=== PATIENT | male | born 1985 | race African-American/Black ===

== ENCOUNTER 2023-12-17 12:13 | Emergency (ER) | payer BC, SELFPAY ==
--- NOTE | ~2023-12-17 | XR_ITS ---
EXAMINATION: XR CHEST CLINICAL INFORMATION: Chest pain COMPARISON: None available. TECHNIQUE: Frontal view of the chest was obtained. FINDINGS: No significant abnormality is noted involving the heart, lungs, mediastinum, bony thorax or soft tissues. XR/XR chest 1V IMPRESSION: No acute pulmonary process.
--- NOTE | ~2023-12-17 | CT_ITS ---
EXAMINATION: CT ABDOMEN AND PELVIS WITH CONTRAST CLINICAL INFORMATION: high fever, diarrhea prior gastric sleeve COMPARISON: None available. TECHNIQUE: Multidetector volumetric images were obtained from the superior aspect of the liver through the pubic symphysis following administration 85 mL of Omnipaque 350 intravenous contrast. Sagittal and coronal reformatted images were obtained on the technologist's workstation. Oral contrast: No This CT examination was performed using dose optimization techniques as appropriate, variously including the following: *Automated exposure control *Adjustment of mA and/or kV according to patient size (this includes techniques or standardized protocols for targeted exams where dose is matched to indication/reason for exam; i.e. extremities or head) *Use of iterative reconstruction technique DLP: 700 mGy-cm FINDINGS: LUNG BASES: The visualized lung bases are unremarkable. LIVER, GALLBLADDER, AND BILIARY TREE: The liver is normal in size, shape, and attenuation. No focal hepatic lesion or biliary ductal dilatation is present. The gallbladder is unremarkable with no evidence of radiopaque gallstones, gallbladder wall thickening, or obvious pericholecystic inflammatory changes. PANCREAS: Unremarkable. SPLEEN: Unremarkable. ADRENAL GLANDS: Unremarkable. KIDNEYS AND URETERS: The kidneys are normal in size, shape, and attenuation. No hydronephrosis, hydroureter, or calculi seen. No perinephric stranding. BLADDER: Unremarkable. GASTROINTESTINAL TRACT: Status post gastric sleeve bariatric procedure. There is a small hiatal hernia with a small amount of fluid in the imaged portion of the distal esophagus. Moderate volume of liquid stool is present throughout the colon. Small bowel and colon are normal in caliber without appreciable bowel wall thickening. Appendix is normal ABDOMINAL WALL: Moderate-sized fat-containing umbilical hernia. No bowel involvement. Tiny fat-containing supraumbilical hernias are also noted. LYMPH NODES: Multiple prominent mesenteric lymph nodes, within normal limits in size measuring up to 5 mm in cross-section. VASCULAR: Unremarkable. PELVIC VISCERA: The prostate and seminal vesicles are unremarkable. OSSEOUS STRUCTURES: Mild osteoarthritis in the hips and SI joints. No acute osseous findings. CT/CT abdomen pelvis w IV con IMPRESSION: 1. Moderate volume of liquid stool throughout the colon, consistent with a history of diarrhea. No appreciable bowel wall thickening. 2. Status post gastric sleeve bariatric procedure with a small hiatal hernia and a small amount of fluid in the distal esophagus. 3. Moderate-sized fat-containing umbilical hernia.
--- NOTE | 2023-12-17 12:20 | ECG_ITS ---
Test Reason : chest pain Blood Pressure : / mmHG Vent. Rate : 108 BPM Atrial Rate : 108 BPM P-R Int : 168 ms QRS Dur : 086 ms QT Int : 326 ms P-R-T Axes : 046 005 026 degrees QTc Int : 436 ms Sinus tachycardia Otherwise normal ECG No previous ECGs available Referred By: Generic ED Physician Electronically Signed By:CARLEEN CORBIN
[2023-12-17 12:28] VITALS: BP 110/77; PULSE 111; RESP 17; TEMP 37; O2SAT 97; BMI 31.1
--- NOTE | 2023-12-17 12:34 | ED.GENADULT ---
HPI - General Adult General Chief complaint: Abdominal Pain Stated complaint: Chest pain, abd pain, vomiting Time Seen by Provider: 12/17/23 21:02 Source: patient Mode of arrival: ambulatory Limitations: no limitations History of Present Illness HPI narrative: 38 yo male with hx of HIV on meds and undetectable viral load here with c/o eating at a friends house then 30 min later developed abrupt onset n/v/d and having diffuse abdominal cramps. He felt some chest pain after vomiting but all of that has improved. He has not had any bleeding. No known fevers. He was able to have BM and pass gas today. He had gastric sleeve a few years back but has had no issues with it. MD complaint: n/v/d Onset (ago): day(s) (last night) Location: abdomen Radiation: non-radiation Severity: moderate Quality: dull Pain Consistency: intermittent Relieving factors: none Exacerbating factors: eating Associated symptoms: loss of appetite, malaise and nausea/vomiting Treatments prior to arrival: none Related Data Previous Rx's Medication Instructions Recorded ondansetron 4 mg disintegrating 4 mg PO Q8H PRN nausea and 12/17/23 tablet vomiting #20 tabs Allergies Allergy/AdvReac Type Severity Reaction Status Date / Time No Known Allergies Allergy Verified 12/17/23 12:31 Review of Systems Review of Systems: Constitutional : No Weight loss, No Fever, No Chills ENT/Mouth : No sore throat, No Rhinorrhea Eyes: No Swelling, No Redness Cardiovascular : No Chest Pain, No SOB, NoEdema Respiratory : No Cough, No Sputum, No Wheezing Gastrointestinal : Positive Nausea, Positive Vomiting, positive Diarrhea, positive abdominal Pain, No Hematochezia, No Melena Genitourinary : No Dysuria, No Urinary Frequency, No Hematuria, No Urgency Musculoskeletal : No joint pain, No Myalgias, No Joint Swelling Skin : No Skin Lesions, No rash Neuro : No Weakness, No Numbness, No Dizziness, No Headache Psych : No Anxiety/Panic, No Depression All other systems reviewed and are negative. [facility] Past Medical History Attestation statement: The following information was validated with the patient. Medical History (Updated 12/19/23 @ 00:02 by Bess Gilbert) HIV (human immunodeficiency virus infection) Surgical History S/P gastric sleeve procedure Social History Social History Smoked in Last 30 Days: No Use of substances other than those prescribed or required for medical reasons: No Advance Directives: No Advance Directives Information Provided: No Physical Exam ED Vital Signs: Vital Signs - 24 hr 12/17/23 12:28 12/17/23 18:11 12/17/23 20:55 Temperature 98.6 F 99.1 F 99.7 F Pulse Rate 111 H 111 H 99 Respiratory Rate 17 18 18 Blood Pressure 110/77 118/74 109/56 L Pulse Oximetry 97 97 99 Oxygen Delivery Method Room Air Room Air Room Air 12/17/23 22:00 12/17/23 23:50 Temperature 103.0 F H 102.4 F H Pulse Rate 112 H Respiratory Rate 20 Blood Pressure 118/62 Pulse Oximetry 97 Oxygen Delivery Method Room Air BMI result Body Mass Index 31.1 Appearance: Alert. Oriented X3. No acute distress. Eyes: Pupils equal, round and reactive to light. ENT: Pharynx normal. Neck: Normal inspection. Neck supple. CVS: Normal heart rate and rhythm. Pulses normal. Respiratory: No respiratory distress. Breath sounds normal. Abdomen: Soft and nontender. no rebound or mass Skin: Skin warm and dry. Normal skin color. Normal skin turgor. Extremities: No lower extremity edema. No calf ttp Neuro: Oriented X 3. No motor deficit. No sensory deficit. Course Course Course Narrative: RME: 38 yold male presents to the ED for abdominal pain, nausea, vomitting, and chest pain due to vomitting since yesterday after eating food from a [employer] party. Patient denies any diarrhea or genitourinary symptoms. Labs EKG COVID swab influenza swab ordered. Reevaluation(s) Reevaluation #1: tolerating PO feels much better Reevaluation #2: fever likely from viral syndrome has no abdominal pain all GI symptoms started together abdomen is benign Reevaluation #3: given fevers will obtain CT scan of abdomen to rule out infection though viral and food toxicity high on list he is immune competent undetectable viral load Additional Reevaluation(s): no sign of infection on CT scan patient does not want to stay has a fever but states he wants to go home and rest. alert and oriented no signs of confusion tolerating PO Medications Administered Discontinued Medications Generic Name Dose Route Start Last Admin Trade Name Partha PRN Reason Stop Dose Admin Acetaminophen 650 mg 12/17/23 18:18 12/17/23 18:31 Acetaminophen 325 Mg Tablet PO 12/17/23 18:19 650 mg ONCE ONE Administration Acetaminophen 650 mg 12/17/23 23:43 12/18/23 00:05 Acetaminophen 325 Mg Tablet PO 12/17/23 23:44 650 mg ONCE ONE Administration Diphenhydramine HCl 25 mg 12/17/23 21:15 12/17/23 22:13 Diphenhydramine Hcl 50 Mg/Ml Vial IVPUSH 12/17/23 21:16 25 mg ONCE ONE Administration Famotidine 20 mg 12/17/23 21:15 12/17/23 22:12 Famotidine/Pf 20 Mg/2 Ml Vial IVPUSH 12/17/23 21:16 20 mg ONCE ONE Administration Sodium Chloride 1,000 mls @ 999 mls/hr 12/17/23 21:15 12/18/23 00:42 Ns IVCONT 12/17/23 23:15 Infused .Q1H1M DENNIS Infusion Iohexol 85 ml 12/18/23 00:16 12/18/23 00:16 Iohexol 350 Mg/Ml 100 Ml Infus..Btl IV 12/18/23 00:17 85 ml ONCE ONE Administration Metoclopramide HCl 10 mg 12/17/23 21:15 12/17/23 22:13 Metoclopramide Hcl 10 Mg/2 Ml Vial IVPUSH 12/17/23 21:16 10 mg ONCE ONE Administration Medical Decision Making Medical Decision Making MDM Narrative: 38 yo male with PMH of HIV undetectable viral load on meds, s/p gastric sleeve a few years ago here s/p eating food at a [employer] [place] then developed n/v/d and cramps 30 min after. His abdominal exam is benign he has no sig ttp or distention. At this time will obtain labs, hydrated x 2L and reglan and benadryl. Will reassess and repeat abdominal exam low susp for SBO suspect viral or food toxicity. Differential Diagnosis Differential Diagnoses: The differential diagnosis associated with the presentation includes food exposure, viral syndrome Admission/Observation Consideration of admission/observation: Escalation of care including admission/observation considered feels better, able to tolerate PO, repeat abdominal exam benign no pain Lab Data [facility] Lab Attestation statement: I reviewed the patient's lab results. 12/17/23 12:47 12/17/23 12:48 Labs: Lab Results 12/17/23 12/17/23 12/17/23 Range/Units 12:43 12:47 12:48 WBC 7.4 (4.8-10.8) X10*3/uL RBC 5.53 (4.60-5.80) X10*6/uL Hgb 16.6 (14.0-18.0) g/dl Hct 47.7 (42.0-52.0) % MCV 86.3 (80.0-98.0) fL MCH 30.0 (27.0-33.0) pg MCHC 34.8 (31.0-36.0) g/dl RDW 12.2 (11.0-16.0) % Plt Count 145 L (160-400) X10*3/uL MPV 11.0 (9.4-12.4) fL Immature Gran % (Auto) 0.3 (0.0-0.4) % Neut % (Auto) 91.0 H (45-73) % Lymph % (Auto) 5.1 L (20-40) % [place] % (Auto) 3.4 (2-11) % Eos % (Auto) 0.1 (0-4) % Baso % (Auto) 0.1 (0-2) % Lymph # (Auto) 0.4 L (1.2-4.9) X10*3/uL [place] # (Auto) 0.3 (0.1-1.2) X10*3/uL Eos # (Auto) 0.0 (0.0-0.4) X10*3/uL Baso # (Auto) 0.0 (0.0-0.2) X10*3/uL Abs Immat Gran (auto) 0.02 (0.00-0.03) X10*3/uL Absolute Neuts (auto) 6.8 (2.0-8.3) x10*3/uL Absolute Nucleated RBC 0.000 (0.0-0.012) X10*3/uL Nucleated RBC % (auto) 0.0 (0.0-0.2) /100WBC Smear Tech's Comments VERIFIED PT 13.3 (11.1-13.3) SEC INR 1.1 (0.9-1.1) APTT 29.7 (26.0-36.8) SEC Sodium 140 (135-145) mmol/L Potassium 4.0 (3.3-5.1) mmol/L Chloride 102 (96-108) mmol/L Carbon Dioxide 29 (22-29) mmol/L Anion Gap 13 (12-20) BUN 15 (9-16) mg/dL Creatinine 1.03 (0.5-1.4) mg/dL Estim Creat Clear Calc 115.4 Estimated GFR > 60 Random Glucose 109 (60-115) mg/dL Calcium 9.6 (8.4-10.2) mg/dL Total Bilirubin 0.6 (0.0-1.0) mg/dL AST 21 (5-37) U/L ALT 21 (0-40) U/L Alkaline Phosphatase 53 (39-117) U/L Troponin I High Sens < 2.7 (<3.5-35.0) ng/L Total Protein 9.3 H (6.5-8.0) g/dL Albumin 4.4 (3.5-5.0) g/dL Lipase 21 (8-78) U/L Urine Color Urine Appearance Urine pH (5.0-9.0) Ur Specific [place] (1.005-1.025) Urine Protein (Neg-Trace) mg/dL Urine Glucose (UA) (Negative) mg/dL Urine Ketones (Negative) mg/dL Urine Blood (Negative) Urine Nitrite (Negative) Ur Leukocyte Esterase (Negative) COVID-19 (ROSS) Negative (Negative) COVID-19 Clin Com See Note Influenza Type A (FELIPE) Negative (Negative) Influenza Type B (FELIPE) Negative (Negative) Influenza A & B Note See Note 12/17/23 Range/Units 18:15 WBC (4.8-10.8) X10*3/uL RBC (4.60-5.80) X10*6/uL Hgb (14.0-18.0) g/dl Hct (42.0-52.0) % MCV (80.0-98.0) fL MCH (27.0-33.0) pg MCHC (31.0-36.0) g/dl RDW (11.0-16.0) % Plt Count (160-400) X10*3/uL MPV (9.4-12.4) fL Immature Gran % (Auto) (0.0-0.4) % Neut % (Auto) (45-73) % Lymph % (Auto) (20-40) % [place] % (Auto) (2-11) % Eos % (Auto) (0-4) % Baso % (Auto) (0-2) % Lymph # (Auto) (1.2-4.9) X10*3/uL [place] # (Auto) (0.1-1.2) X10*3/uL Eos # (Auto) (0.0-0.4) X10*3/uL Baso # (Auto) (0.0-0.2) X10*3/uL Abs Immat Gran (auto) (0.00-0.03) X10*3/uL Absolute Neuts (auto) (2.0-8.3) x10*3/uL Absolute Nucleated RBC (0.0-0.012) X10*3/uL Nucleated RBC % (auto) (0.0-0.2) /100WBC Smear Tech's Comments PT (11.1-13.3) SEC INR (0.9-1.1) APTT (26.0-36.8) SEC Sodium (135-145) mmol/L Potassium (3.3-5.1) mmol/L Chloride (96-108) mmol/L Carbon Dioxide (22-29) mmol/L Anion Gap (12-20) BUN (9-16) mg/dL Creatinine (0.5-1.4) mg/dL Estim Creat Clear Calc Estimated GFR Random Glucose (60-115) mg/dL Calcium (8.4-10.2) mg/dL Total Bilirubin (0.0-1.0) mg/dL AST (5-37) U/L ALT (0-40) U/L Alkaline Phosphatase (39-117) U/L Troponin I High Sens (<3.5-35.0) ng/L Total Protein (6.5-8.0) g/dL Albumin (3.5-5.0) g/dL Lipase (8-78) U/L Urine Color Yellow Urine Appearance Clear Urine pH 7.5 (5.0-9.0) Ur Specific [place] 1.025 (1.005-1.025) Urine Protein Negative (Neg-Trace) mg/dL Urine Glucose (UA) Negative (Negative) mg/dL Urine Ketones Negative (Negative) mg/dL Urine Blood Negative (Negative) Urine Nitrite Negative (Negative) Ur Leukocyte Esterase Negative (Negative) COVID-19 (ROSS) (Negative) COVID-19 Clin Com Influenza Type A (FELIPE) (Negative) Influenza Type B (FELIPE) (Negative) Influenza A & B Note Independent Interpretation I performed an independent interpretation of an: EKG, Plain X-Ray (normal ) and CT Scan (likely enteritis) Interpretation: Rate: 108 Rhythm: sinus tachycardia [place]: left Normal P waves. Normal [place]AD[place]INE. Normal QRS complex. ST T wave : normal no ONEL, qTC: 436 prior studies: no acute ischemia The study has been interpreted contemporaneously by me. . Radiology Impression Discussion of test interpretation with radiology: I have reviewed the radiologist's reading. Prescription Management I considered prescription management with: Other Discharge Plan Discharge Clinical Impression: Vomiting, Diarrhea, Food poisoning, Fever Patient Disposition: Home, Self-Care Instructions: Fever in Adults (ED), Acute Nausea and Vomiting (ED), Acute Diarrhea (ED), Food Poisoning (ED) Additional Instructions: return if unable to pass gas or have BM - worsening abdominal pain or enlarging abdomen. persistent fevers or bloody stools. advance diet slowly over 48 hours. bananas apple sauce rice and toast. recheck platelets with PCP in 3 days minimally reduced from virus avoid aspirin Prescriptions: New ondansetron 4 mg tablet,disintegrating 4 mg PO Q8H PRN (Reason: nausea and vomiting) Qty: 20 0RF Stand Alone Forms: Work/School Release Interventions: ED Discharge Assessment Last Done: 12/18/23 02:48 Discharge Date/Time: 12/18/23 02:52
[2023-12-17 13:00] LABS: Basophils Percent Auto 0.1 % (0-2); Eosinophils Percent Auto 0.1 % (0-4); Hematocrit 47.7 % (42.0-52.0); Hemoglobin 16.6 g/dl (14.0-18.0); Imm Gran Abs Auto 0.02 X10*3/uL (0.00-0.03); Imm Gran Pct Auto 0.3 % (0.0-0.4); Lymphocytes Absolute Auto 0.4 X10*3/uL (1.2-4.9); Lymphocytes Percent Auto 5.1 % (20-40); MANUAL DIFF FLAG SCAN; Mean Corpuscular HGB Conc 34.8 g/dl (31.0-36.0); Mean Corpuscular Volume 86.3 fL (80.0-98.0); Monocytes Absolute Auto 0.3 X10*3/uL (0.1-1.2); Monocytes Percent Auto 3.4 % (2-11); Neutrophils Absolute Auto 6.8 x10*3/uL (2.0-8.3); Platelet Count 145 X10*3/uL (160-400); Red Blood Count 5.53 X10*6/uL (4.60-5.80); Red Cell Distribution Width 12.2 % (11.0-16.0); SCAN SMEAR FLAG 1; White Blood Count 7.4 X10*3/uL (4.8-10.8)
[2023-12-17 13:05] LABS: INTERNATIONAL NORM RATIO 1.1 (0.9-1.1); Prothrombin Time 13.3 SEC (11.1-13.3)
[2023-12-17 13:05] LABS: COVID-19 Test Negative (Negative); IDNOW Serial# 08D9AD1C
[2023-12-17 13:08] LABS: Partial Thromboplastin Time 29.7 SEC (26.0-36.8)
[2023-12-17 13:10] LABS: IDNOW Serial# 152EDE1D; Influenza A Negative (Negative); Influenza B2 Negative (Negative)
[2023-12-17 13:17] LABS: Alanine Aminotransferase 21 U/L (0-40); Albumin Level 4.4 g/dL (3.5-5.0); Alkaline Phosphatase 53 U/L (39-117); Anion Gap 13 (12-20); Aspartate Amino Transferase 21 U/L (5-37); Bilirubin Total 0.6 mg/dL (0.0-1.0); Blood Urea Nitrogen 15 mg/dL (9-16); Calcium 9.6 mg/dL (8.4-10.2); Carbon Dioxide 29 mmol/L (22-29); Chloride 102 mmol/L (96-108); Creatinine Clr Calc Pharmacy 115.4; Estimated Glomerular Filt Rate > 60; Glucose Random 109 mg/dL (60-115); Lipase 21 U/L (8-78); Sodium 140 mmol/L (135-145); Total Protein 9.3 g/dL (6.5-8.0)
[2023-12-17 13:21] LABS: SLIDE REVIEW VERIFIED
[2023-12-17 13:32] LABS: Troponin-I High Sensitivity < 2.7 ng/L (<3.5-35.0)
[2023-12-17 18:11] VITALS: BP 118/74; PULSE 111; RESP 18; TEMP 37.3; O2SAT 97
[2023-12-17 18:29] LABS: Appearance Urine Clear; Color Urine Yellow; Glucose Urine UA Negative (Negative); Leukocyte Esterase Urine Negative (Negative); Nitrite Urine Negative (Negative); PH 7.5 (5.0-9.0); Specific Gravity - Urine 1.025 (1.005-1.025); Urine Blood Negative (Negative); Urine Ketones Negative (Negative); Urine Protein Negative (Neg-Trace)
[2023-12-17] MEDS: Acetaminophen 325 MG TABLET 650 MG PO (18:31)
[2023-12-17 20:55] VITALS: BP 109/56; PULSE 99; RESP 18; TEMP 37.6; O2SAT 99
[2023-12-17] MEDS: 0.9 % Sodium Chloride 1,000 ML 999 ML IVCONT ×2 (21:59→22:24)
[2023-12-17 22:00] VITALS: BP 118/62; PULSE 112; RESP 20; TEMP 39.4; O2SAT 97
[2023-12-17] MEDS: Famotidine/PF 20 MG/2 ML VIAL IVPUSH (22:12)
[2023-12-17] MEDS: Metoclopramide HCl 10 MG/2 ML VIAL IVPUSH (22:13)
[2023-12-17] MEDS: diphenhydrAMINE HCL 50 MG/ML VIAL 25 MG IVPUSH (22:13)
--- NOTE | 2023-12-17 23:46 | MHC.EDTECH ---
Patient drank some moira philippe and ate saltines per providers request,hourly rounds and vitals completed,oral temp is 103.0 ,Reny RN and Doctor are aware.
[2023-12-17 23:50] VITALS: TEMP 39.1
[2023-12-18] MEDS: Acetaminophen 325 MG TABLET 650 MG PO (00:05)
[2023-12-18] MEDS: iohexoL 350 MG/ML 100 ML INFUS..BTL 85 ML IV (00:16)
--- NOTE | 2023-12-18 01:11 | PC.NURSE ---
20G IV access established right AC. Line is patent, flushes well without pain and no signs of infiltration.
[2023-12-18 01:49] VITALS: BP 104/55; PULSE 100; RESP 18; TEMP 38.3; O2SAT 97
--- NOTE | 2023-12-18 02:06 | MHC.EDTECH ---
Hourly rounds and vitals completed, Oral temp 101.0 RN and MD aware
== END 2023-12-18 02:52 | disposition home or self-care (01) ==
PROVIDERS: Physician Assistant; Emergency Provider Emergency Medicine
DX: R07.89 Other chest pain (principal); R11.2 Nausea with vomiting, unspecified; R25.2 Cramp and spasm; Z79.899 Other long term (current) drug therapy
CPT/HCPCS: 71045; 74177; 80053; 81003; 83690; 84484; 85025; 85610; 85730; 87502; 87635; 93005; 96361; 96374; 96375; 99285; J1200; J2765; Q9967

== ENCOUNTER → 2023-12-17 12:20 | Outpatient (BNV) | payer BC, SELFPAY | PROVIDERS: Emergency Provider Emergency Medicine; Visit Provider Internal Medicine | DX: R00.0 Tachycardia, unspecified (principal) | CPT/HCPCS: 93010 ==